=== PATIENT | female | born 1990 | race Caucasian/White ===

== ENCOUNTER → 2021-06-02 20:48 | Outpatient (CLI) | payer SELFPAY | PROVIDERS: Visit Provider Nurse Practitioner Family | DX: U07.1 COVID-19 (principal) | CPT/HCPCS: C9803; U0003; U0005 ==

== ENCOUNTER 2024-04-10 13:46 | Outpatient (CLI) | payer OTHER, SELFPAY ==
[2024-04-10 15:17] LABS: HCG,Quantitative < 2 mIU/ml (0-5.42)
== END 2024-04-10 23:59 | disposition home or self-care (01) ==
LOC: LAB 13:48
PROVIDERS: Visit Provider Obstetrics & Gynecology
DX: Z30.9 Encounter for contraceptive management, unspecified (principal)
CPT/HCPCS: 36415; 84702